=== PATIENT | female | born 1985 | race Caucasian/White ===

== ENCOUNTER 2019-02-26 13:18 | Inpatient (IN) | payer SELFPAY ==
[~2019-02-26] VITALS: Ht 160 cm; Wt 49.4 kg
--- NOTE | 2019-02-26 13:35 | NUR ---
PATIENT BROUGHT BACK FROM TRIAGE WITH CHIEF COMPLAINT OF SOB, SORE THROAT, COUGH FOR TWO DAYS. THR PATIENT ARRIVES ALERT HOWEVER UNABLE TO TALK DUE TO SOB.
[2019-02-26] MEDS ORDERED: SODIUM CHLORIDE 0.9% 1,000 ML IV ONE (13:41)
[2019-02-26] MEDS ORDERED: HYDROcodone/APAP 7.5-325MG/15ML UDC ONE (13:47)
[2019-02-26] MEDS ORDERED: DEXAMETHASONE 4 MG/ML, 5ML ONE (13:47)
[2019-02-26] MEDS: HYDROcodone/APAP 7.5-325MG/15ML UDC PO PRN (13:50)
[2019-02-26] MEDS ORDERED: DEXAMETHASONE 4 MG/ML, 1ML IVPush ONE (14:00)
[2019-02-26] MEDS ORDERED: RACEPINEPHRINE INH 2.25%, 0.5ML NPPB ONE (14:00)
[2019-02-26] MEDS ORDERED: RACEPINEPHRINE INH 2.25%, 0.5ML ONE (14:12)
[2019-02-26 14:13] LABS: RAPID INFLUENZA A Negative (Negative); RAPID INFLUENZA B Negative (Negative)
[2019-02-26 14:15] LABS: BASOPHILS # (AUTO) 0.03 x10^3/uL (0-0.1); BASOPHILS % (AUTO) 1 % (0-1); EOSINOPHILS # (AUTO) 0.06 x10^3/uL (0-0.4); EOSINOPHILS % (AUTO) 1 % (1-7); LYMPHOCYTES # (AUTO) 1.07 x10^3/uL (1-3.4); LYMPHOCYTES % (AUTO) 20 % (22-44); MD NO; MEAN CORPUSCULAR HEMOGLOBIN 27.2 pg (27.0-34.8); MEAN CORPUSCULAR HGB CONC 32.7 g/dL (32.4-35.8); MEAN CORPUSCULAR VOLUME 83.3 fL (80-100); MEAN PLATELET VOLUME 7.4 fL (7.4-10.4); MONOCYTES # (AUTO) 0.35 x10^3/uL (0.2-0.8); MONOCYTES % (AUTO) 7 % (2-9); NEUTROPHILS # (AUTO) 3.84 x10^3/uL (1.8-6.8); NEUTROPHILS % (AUTO) 72 % (42-75); PLATELET COUNT 308 x10^3/uL (130-400); RED BLOOD COUNT 4.59 x10^6/uL (3.82-5.3); RED CELL DISTRIBUTION WIDTH 15.7 % (9.6-15.2)
[2019-02-26 14:25] LABS: ANION GAP 9 mmol/L (5-15); CALCIUM 8.7 mg/dL (8.5-10.1); CHLORIDE 109 mmol/L (98-107); CREATININE 0.79 mg/dL (0.55-1.02)
--- NOTE | 2019-02-26 14:41 | NUR ---
RT TX OF RACEPHINEPHRINE STARTED. HR 83, POX 100 BP 114/67. COARSE BS IN BASES. PT WITH OCC HOARSE/DRY SOUNDING COUGH.
--- NOTE | 2019-02-26 15:36 | NUR ---
ERMD AT BEDSIDE TO DISCUSS POC
--- NOTE | 2019-02-26 16:05 | NUR ---
O2 TITRATION TOLERATED WELL
--- NOTE | 2019-02-26 16:48 | NUR ---
PATIENT RESTING IN BED, AGAIN TOLERATING O2 TITRATION WELL.
--- NOTE | 2019-02-26 17:30 | NUR ---
TRIAL OFF SPO2 TOLERATING WELL.
--- NOTE | 2019-02-26 17:43 | NUR ---
QUYNH KOENIG AT BEDSIDE FOR EVALUATION
--- NOTE | 2019-02-26 18:36 | NUR ---
PT TO CT
[2019-02-26] MEDS ORDERED: OMNIPAQUE 350 MG/ML, 100ML BOTTLE ONE (18:38)
--- NOTE | 2019-02-26 19:02 | NUR ---
RECEIVED REPORT FROM JOSH WAGNER. PT RESTING ON GURNEY. PT ON MONITORING. UPDATED PT ON POC. VSS. CALL LIGHT WITHIN REACH.
[2019-02-26] MEDS ORDERED: MORPHINE SULFATE 4 MG/ML, 1ML ONE (19:29)
[2019-02-26] MEDS ORDERED: MORPHINE SULFATE 4 MG/ML, 1ML IVPush PRN (19:30)
[2019-02-26] MEDS ORDERED: DIPHENHYDRAMINE 25 MG CAPSULE ONE (19:51)
--- NOTE | 2019-02-26 20:01 | NUR ---
PT RESTING ON [employer]. FRIEND AT FOR SUPPORT. PT PROVIDED PAIN MANAGEMENT PER MAR. PT DENIES ANY FURTHER NEEDS AT THIS TIME. PT CONNECTED TO MONITORING, CALL LIGHT WITHIN REACH, ALL SAFETY MEASURES IN PLACE.
--- NOTE | 2019-02-26 20:18 | NUR ---
FIRST ATTEMPT TO CALL REPORT
[2019-02-26] MEDS ORDERED: morphine SULFATE 10 MG/ML, 1ML IVPush PRN (20:30)
[2019-02-26] MEDS ORDERED: ACETAMINOPHEN 325 MG TABLET PO PRN (20:30)
[2019-02-26] MEDS ORDERED: DEXAMETHASONE 4 MG/ML, 1ML IVPush SCH (20:30)
[2019-02-26] MEDS ORDERED: RACEPINEPHRINE INH 2.25%, 0.5ML NPPB PRN (20:30)
[2019-02-26] MEDS ORDERED: PROMETHAZINE 25 MG/ML, 1ML IM PRN (20:30)
[2019-02-26] MEDS ORDERED: ONDANSETRON 2MG/ML, 2ML IVPush PRN (20:30)
[2019-02-26] MEDS ORDERED: DIPHENHYDRAMINE 50 MG/ML, 1ML IVPush ONE (20:30)
[2019-02-26] MEDS ORDERED: BENZOCAINE 20% SPRAY 0.5ML ONE (20:32)
--- NOTE | 2019-02-26 20:35 | NUR ---
CHANGE OF ADMIT FLOOR AT 2030, PT UPDATED.
--- NOTE | 2019-02-26 20:42 | NUR ---
PT UPDATED ON POC, FRIEND AT BS FOR SUPPORT. PT DENIES FURTHER NEEDS AT THIS TIME. REPORTS 5/10 PAIN REFUSED MORPHINE AT THIS TIME. ALL SAFETY MEASURES IN PLACE, CALL LIGHT WITHIN REACH.
[2019-02-26] MEDS ORDERED: DIPHENHYDRAMINE 25 MG CAPSULE PO ONE (21:00)
--- NOTE | 2019-02-26 21:00 | NUR ---
PER DR. MCKEE NO BLOOD CULTURES NEEDED PRIOR TO IV ABX; FLOOR RN AWARE OF THIS.
[2019-02-26 21:02] LABS: HCT (SEDRATE) 38.4 % (34.6-47.8)
--- NOTE | 2019-02-26 21:11 | NUR ---
REPORT GIVEN TO JOSH RICH
[2019-02-26] MEDS: ENOXAPARIN 40 MG/0.4 ML SQ SCH (21:53)
[2019-02-26] MEDS: SODIUM CHLORIDE 0.9% 1,000 ML IV SCH (22:00)
[2019-02-26] MEDS: CEFTRIAXONE PMX 1GM/50ML 50 ML IV SCH (23:43)
[2019-02-27] MEDS: AZITHROMYCIN 500 MG in SODIUM CHLORIDE 0.9% 250 ML IV SCH (00:32)
[2019-02-27 01:48] VITALS: BP 100/61
[2019-02-27] MEDS: DEXAMETHASONE 4 MG/ML, 1ML IVPush SCH ×3 (04:44→20:34)
[2019-02-27 06:06] LABS: CHLORIDE 114 mmol/L (98-107)
[2019-02-27 06:19] LABS: ALANINE AMINOTRANSFERASE 12 U/L (12-78); ALBUMIN 3.2 g/dL (3.4-5.0); ALKALINE PHOSPHATASE 40 U/L (45-117); ANION GAP 7 mmol/L (5-15); BILIRUBIN,TOTAL 0.4 mg/dL (0.2-1.0); CALCIUM 7.9 mg/dL (8.5-10.1); TOTAL PROTEIN 5.8 g/dL (6.4-8.2)
[2019-02-27 06:21] LABS: BASOPHILS % (AUTO) 0 % (0-1); EOSINOPHILS # (AUTO) 0.06 x10^3/uL (0-0.4); EOSINOPHILS % (AUTO) 1 % (1-7); LYMPHOCYTES # (AUTO) 0.63 x10^3/uL (1-3.4); LYMPHOCYTES % (AUTO) 13 % (22-44); MD NO; MEAN CORPUSCULAR HEMOGLOBIN 27.7 pg (27.0-34.8); MEAN CORPUSCULAR HGB CONC 32.5 g/dL (32.4-35.8); MEAN CORPUSCULAR VOLUME 85.2 fL (80-100); MONOCYTES # (AUTO) 0.24 x10^3/uL (0.2-0.8); MONOCYTES % (AUTO) 5 % (2-9); NEUTROPHILS # (AUTO) 4.09 x10^3/uL (1.8-6.8); NEUTROPHILS % (AUTO) 81 % (42-75); PLATELET COUNT 276 x10^3/uL (130-400); RED BLOOD COUNT 3.99 x10^6/uL (3.82-5.3)
[2019-02-27 06:34] VITALS: BP 96/62
[2019-02-27] MEDS: SODIUM CHLORIDE 0.9% 1,000 ML IV SCH (08:03)
[2019-02-27] MEDS: HYDROcodone/APAP 7.5-325MG/15ML UDC PO PRN (11:56)
[2019-02-27 12:21] VITALS: BP 98/60
[2019-02-27 18:54] VITALS: BP 109/66
[2019-02-27] MEDS ORDERED: HYDROcodone/APAP 7.5-325MG/15ML UDC PO PRN (19:30)
[2019-02-27] MEDS: ENOXAPARIN 40 MG/0.4 ML SQ SCH (20:34)
[2019-02-27] MEDS: CEFTRIAXONE PMX 1GM/50ML 50 ML IV SCH (23:31)
[2019-02-28] MEDS: AZITHROMYCIN 500 MG in SODIUM CHLORIDE 0.9% 250 ML IV SCH (00:13)
[2019-02-28 00:27] VITALS: BP 103/64
[2019-02-28] MEDS ORDERED: DIPHENHYDRAMINE 25 MG CAPSULE ONE (00:36)
[2019-02-28] MEDS ORDERED: DIPHENHYDRAMINE 12.5MG/5ML, 10ML UDC PO ONE (01:00)
[2019-02-28] MEDS: DEXAMETHASONE 4 MG/ML, 1ML IVPush SCH ×2 (04:37→12:30)
[2019-02-28] MEDS ORDERED: OMEPRAZOLE 20 MG CAPSULE.DR PO SCH (06:00)
[2019-02-28 09:00] VITALS: BP 106/64
[2019-02-28] MEDS ORDERED: METH4TAB2 PO (12:12)
[2019-02-28] MEDS ORDERED: AZIT500T10 PO (12:12)
[2019-02-28] MEDS ORDERED: CEFD300C37 PO (12:12)
[2019-02-28 14:17] LABS: ANA SCREEN NEGATIVE (Negative)
== END 2019-02-28 13:45 | disposition home or self-care (01) | DRG 153 ==
LOC: ED 15:21 → EDIP 19:08 → 3N 20:35 → 4EST 21:25 → DCLOUNGE 02-28 13:37
PROVIDERS: ADMIT Internal Medicine; ATTEND Hospitalist
DX: J05.0 Acute obstructive laryngitis [croup] (principal); J38.6 Stenosis of larynx; J45.909 Unspecified asthma, uncomplicated; M41.9 Scoliosis, unspecified; Z82.49 Family history of ischemic heart disease and other diseases of the circulatory system
CPT/HCPCS: 36415; 80053; 85025; 96361; 96374; G0378; J0456; J0696; J1100; J1650; Q9967; J2270; J7030; J7050; Q0163